=== PATIENT | female | born 1995 | race Caucasian/White ===

== ENCOUNTER 2018-08-28 18:23 | Emergency (ER) | payer OTHER ==
[~2018-08-28] VITALS: Ht 154.9 cm; Wt 52.3 kg
[2018-08-28 18:31] VITALS: BP 117/58
[2018-08-28] MEDS ORDERED: DEXAMETHASONE SOD PHOS 4 MG/ML 5 ML VIAL IM ONE (19:30)
[2018-08-28] MEDS ORDERED: NAPROXEN 250 MG TABLET PO ONE (19:30)
[2018-08-28] MEDS ORDERED: DiphenhydrAMINE HCL 25 MG CAPSULE PO ONE (19:30)
== END 2018-08-28 19:56 | disposition home or self-care (01) ==
LOC: EMS 18:24
DX: T63.481A Toxic effect of venom of other arthropod, accidental (unintentional), initial encounter (principal); F17.210 Nicotine dependence, cigarettes, uncomplicated; Z88.2 Allergy status to sulfonamides; Y92.89 Other specified places as the place of occurrence of the external cause
CPT/HCPCS: 96372; 99283; J1100

== ENCOUNTER 2020-03-29 14:06 | Emergency (ER) | payer BC, OTHER ==
[~2020-03-29] VITALS: Ht 154.9 cm; Wt 53.2 kg
[2020-03-29 16:24] LABS: BASOPHILS % (AUTO) 0.5 % (0.0-2.0); HEMATOCRIT 41.7 % (36-46); HEMOGLOBIN 14.3 g/dL (12.0-16.0); LYMPHOCYTES # (AUTO) 2.1 K/uL (1.0-4.8); LYMPHOCYTES % (AUTO) 37.3 % (22.0-44.0); MEAN CORPUSCULAR HEMOGLOBIN 32.7 pg (26.0-34.0); MEAN CORPUSCULAR HGB CONC 34.4 G/dL (31.0-37.0); MEAN CORPUSCULAR VOLUME 95 fL (80-100); MONOCYTES # (AUTO) 0.5 K/uL (0.1-1.0); MONOCYTES % (AUTO) 8.8 % (2.0-9.0); NEUTROPHILS % (AUTO) 52.4 % (40.0-70.0); PLATELET COUNT (AUTO) 256 K/uL (150-450); RED BLOOD CELL COUNT(AUTO) 4.39 MIL/uL (4.00-5.20); RED CELL DISTRIBUTION WIDTH 12.5 % (11.5-14.5)
[2020-03-29 17:08] LABS: PROTHROMBIN TIME 10.1 SEC (9.4-11.6)
[2020-03-29 18:15] VITALS: BP 129/80
== END 2020-03-29 18:45 | disposition home or self-care (01) ==
LOC: EMS 14:08
DX: Z03.818 Encounter for observation for suspected exposure to other biological agents ruled out (principal); F10.929 Alcohol use, unspecified with intoxication, unspecified; R04.2 Hemoptysis; F17.210 Nicotine dependence, cigarettes, uncomplicated; F12.90 Cannabis use, unspecified, uncomplicated; Z88.2 Allergy status to sulfonamides; Y90.9 Presence of alcohol in blood, level not specified
CPT/HCPCS: 36415; 71045; 81025; 84702; 85025; 85610; 85730; 99285; 99406; U0003

== ENCOUNTER 2022-03-18 20:58 | Emergency (ER) | payer BC ==
[~2022-03-18] VITALS: Ht 154.9 cm; Wt 59.1 kg
[2022-03-18 21:30] VITALS: BP 108/73
== END 2022-03-18 22:08 ==
LOC: EMS 21:03
DX: F10.129 Alcohol abuse with intoxication, unspecified (principal); Z88.2 Allergy status to sulfonamides; V89.2XXA Person injured in unspecified motor-vehicle accident, traffic, initial encounter; Y93.89 Activity, other specified; Y92.89 Other specified places as the place of occurrence of the external cause; Y99.8 Other external cause status
CPT/HCPCS: 99283; Z7502